=== PATIENT | male | born 1935 | race Caucasian/White ===

== ENCOUNTER 2017-08-13 19:58 | Inpatient (IN) | payer MEDICARE, BC ==
[~2017-08-13] VITALS: Ht 172.7 cm; Wt 81.6 kg
[2017-08-13 20:20] VITALS: BP 124/42
[2017-08-13] MEDS ORDERED: Thiamine HCl 100 MG in D5W 55 ML IVPB ONE (20:30)
--- NOTE | 2017-08-13 20:31 | Emergency Room Report ---
History of Present Illness General Chief Complaint: Behavioral Complaint Source: Patient, Medical Record Present Illness HPI The patient is 81-year-old male brought in by EMS after increased agitation and aggressive behavior at his group home. The patient prior history dementia. The patient is noted to be moderately confused. He reportedly had been given Ativan as well as another sedative medication prior to arrival. History is markedly limited by patient's mental status. Allergies: Coded Allergies: No Known Allergies (Unverified , 08/13/17) Patient History Reviewed Nursing Documentation: PMH: Agreed, PSxH: Agreed Nursing Documentation-PMH Hx Hypertension: Yes Review of Systems All Other Systems: limited - by mental status Physical Exam Vital Signs Date Time Temp Pulse Resp B/P (MAP) Pulse Ox O2 Delivery O2 Flow Rate FiO2 08/13/17 20:11 98.4 86 20 124/42 96 Room Air Sp02 EP Interpretation: reviewed, normal General Appearance: no apparent distress, alert, Chronically Ill Head: atraumatic Eyes: bilateral eye PERRL ENT: normal ENT inspection, hearing grossly normal, normal voice, uvula midline , dry mucus membranes Neck: normal inspection, full range of motion, supple, no bony tend Respiratory: normal inspection, lungs clear, normal breath sounds, no respiratory distress, no retraction, no wheezing Cardiovascular #1: regular rate, rhythm, no edema, systolic murmur Gastrointestinal: normal inspection, normal bowel sounds, non tender, soft, no guarding, no hernia Genitourinary: no CVA tenderness Musculoskeletal: back normal, decreased range of motion Neurologic: alert, responsive, other - incoherent speech, no focal neuro deficit noted, confabulatione Psychiatric: mood/affect normal Skin: normal inspection, normal color, no rash Medical Decision Making Diagnostic Impression: Primary Impression: Encephalopathy acute ER Course Patient presented for altered mental status and agitation. Differential diagnosis included but was not limited to ischemic stroke, subarachnoid hemorrhage, hypoglycemia, spinal cord injury, neurodegenerative disorder, urinary tract infection, hypoxemia.Because of complexity of patient's case laboratory testing and imaging studies were ordered. The patient appears to have dementia however he may have some underlying medical illness causing a change in his behavior. Patient given Haldol for agitation. A CT head read by radiology showed atrophic changes without evident intracranial hemorrhage or acute CVA. Dr. Aragon was contacted for for inpatient management Labs Test 08/13/17 21:20 White Blood Count 10.1 K/UL (4.8-10.8) Red Blood Count 4.84 M/UL (4.70-6.10) Hemoglobin 13.8 G/DL (14.2-18.0) Hematocrit 44.9 % (42.0-52.0) Mean Corpuscular Volume 93 FL (80-99) Mean Corpuscular Hemoglobin 28.6 PG (27.0-31.0) Mean Corpuscular Hemoglobin Concent 30.8 G/DL (32.0-36.0) Red Cell Distribution Width 11.6 % (11.6-14.8) Platelet Count 301 K/UL (150-450) Mean Platelet Volume 7.1 FL (6.5-10.1) Neutrophils (%) (Auto) 63.1 % (45.0-75.0) Lymphocytes (%) (Auto) 21.7 % (20.0-45.0) Monocytes (%) (Auto) 9.5 % (1.0-10.0) Eosinophils (%) (Auto) 4.7 % (0.0-3.0) Basophils (%) (Auto) 1.0 % (0.0-2.0) Sodium Level 143 MMOL/L (136-145) Potassium Level 3.8 MMOL/L (3.5-5.1) Chloride Level 109 MMOL/L (98-107) Carbon Dioxide Level 27 MMOL/L (21-32) Anion Gap 7 mmol/L (5-15) Blood Urea Nitrogen 15 mg/dL (7-18) Creatinine 0.8 MG/DL (0.55-1.30) Estimat Glomerular Filtration Rate mL/min (>60) Glucose Level 103 MG/DL (74-106) Calcium Level 9.5 MG/DL (8.5-10.1) Total Bilirubin 0.3 MG/DL (0.2-1.0) Aspartate Amino Transf (AST/SGOT) 20 U/L (15-37) Alanine Aminotransferase (ALT/SGPT) 26 U/L (12-78) Alkaline Phosphatase 90 U/L (46-116) Ammonia 4 umol/L (11-32) Troponin I 0.000 ng/mL (0.000-0.056) Total Protein 7.1 G/DL (6.4-8.2) Albumin 3.2 G/DL (3.4-5.0) Globulin 3.9 g/dL Albumin/Globulin Ratio 0.8 (1.0-2.7) Thyroid Stimulating Hormone (TSH) 1.314 uiU/mL (0.358-3.740) Last Vital Signs Date Time Temp Pulse Resp B/P (MAP) Pulse Ox O2 Delivery O2 Flow Rate FiO2 08/13/17 20:11 98.4 86 20 124/42 96 Room Air Status: unchanged Disposition: ADMITTED INPATIENT Condition: Serious Solo Can Aug 13, 2017 20:31
[2017-08-13] MEDS ORDERED: Thiamine HCl 100mg/ml 2 ml Inj ONE (20:48)
[2017-08-13 21:53] LABS: EOSINOPHILS % (AUTO) 4.7 % (0.0-3.0); LYMPHOCYTES % (AUTO) 21.7 % (20.0-45.0); MEAN CORPUSCULAR HEMOGLOBIN 28.6 PG (27.0-31.0); MEAN CORPUSCULAR HGB CONC 30.8 G/DL (32.0-36.0); MEAN CORPUSCULAR VOLUME 93 FL (80-99); MEAN PLATELET VOLUME 7.1 FL (6.5-10.1); MONOCYTES % (AUTO) 9.5 % (1.0-10.0); NEUTROPHILS % (AUTO) 63.1 % (45.0-75.0); PLATELET COUNT 301 K/UL (150-450); RED BLOOD COUNT 4.84 M/UL (4.70-6.10); RED CELL DISTRIBUTION WIDTH 11.6 % (11.6-14.8); WHITE BLOOD COUNT 10.1 K/UL (4.8-10.8)
[2017-08-13 22:00] VITALS: BP 127/54
[2017-08-13 22:06] LABS: ANION GAP 7 mmol/L (5-15); CALCIUM 9.5 MG/DL (8.5-10.1); CARBON DIOXIDE 27 MMOL/L (21-32); CHLORIDE 109 MMOL/L (98-107); CREATININE 0.8 MG/DL (0.55-1.30); POTASSIUM 3.8 MMOL/L (3.5-5.1); SODIUM 143 MMOL/L (136-145)
[2017-08-13 22:09] LABS: AMMONIA 4 umol/L (11-32)
[2017-08-13 22:12] LABS: ALANINE AMINOTRANSFERASE 26 U/L (12-78); ALBUMIN/GLOBULIN RATIO 0.8 (1.0-2.7); ASPARTATE AMINO TRANSFERASE 20 U/L (15-37); THYROID STIMULATING HORMONE 1.314 uiU/mL (0.358-3.740); TOTAL PROTEIN 7.1 G/DL (6.4-8.2)
[2017-08-13] MEDS ORDERED: Haloperidol 5mg/ml Inj IM ONE (22:30)
[2017-08-14] VITALS (7 sets, daily range): BP systolic 117–147; BP diastolic 50–95
[2017-08-14] MEDS ORDERED: Thiamine HCl 100 MG, Folic Acid 1 MG, Magnesium Sulfate 2,000 MG, Multivitamin - 12 Inj... IV SCH ×10 (01:45→08:00)
[2017-08-14] MEDS ORDERED: Haloperidol Lactate 5 MG in D5W 55 ML IVPB PRN (01:45)
[2017-08-14] MEDS ORDERED: TAMSULOSIN HCL0.4 MG ORAL (02:02)
[2017-08-14] MEDS ORDERED: DONEPEZIL HCL10 MG ORAL (02:02)
[2017-08-14] MEDS ORDERED: CATAPRES0.1 MG ORAL (02:02)
[2017-08-14] MEDS ORDERED: ARTIFICIAL TEA1 EAC2 BOTH EYES (02:02)
[2017-08-14] MEDS ORDERED: PENTOXIFYLLINE400 MG ORAL (02:02)
[2017-08-14] MEDS ORDERED: SIMVASTATIN20 MG ORAL (02:02)
[2017-08-14] MEDS ORDERED: ATENOLOL25 MG ORAL (02:02)
[2017-08-14] MEDS ORDERED: LISINOPRIL20 MG ORAL (02:02)
[2017-08-14] MEDS ORDERED: NAMENDA10 MG ORAL (02:02)
[2017-08-14] MEDS ORDERED: DEPAKOTE SPRIN125 MG PO (03:23)
[2017-08-14] MEDS ORDERED: CELEXA20 MG ORAL (03:23)
[2017-08-14] MEDS ORDERED: MULTIVITAMINS1 EAC2 ORAL (03:23)
[2017-08-14] MEDS ORDERED: LORAZEPAM0.5 MG ORAL (03:23)
[2017-08-14] MEDS: D5 1/2NS 1,000 ML IV SCH ×2 (04:14→18:00)
[2017-08-14] MEDS ORDERED: Thiamine 100mg in D5W 55ml IVPB SCH (08:00)
[2017-08-14] MEDS ORDERED: Folic Acid 1 MG, Magnesium Sulfate 2,000 MG, Multivitamin - 12 Injection 10 ML in NS w/... IV SCH (08:00)
[2017-08-14] MEDS: LORazepam 0.5mg tab ORAL PRN (08:51)
[2017-08-14] MEDS: Citalopram 20mg Tab ORAL SCH (08:52)
[2017-08-14] MEDS: Depakote 125mg Sprinkles ORAL SCH ×2 (08:52→18:00)
[2017-08-14] MEDS: Artificial Tears 1.4% Op Soln BOTH EYES SCH (08:54)
[2017-08-14] MEDS: Memantine 10mg tab ORAL SCH ×2 (09:00→21:41)
[2017-08-14] MEDS: Lisinopril 20mg tab ORAL SCH (09:00)
[2017-08-14] MEDS: Heparin 5000 units/ml inj SUBQ SCH ×2 (09:02→21:41)
[2017-08-14] MEDS: Atenolol 25mg tab ORAL SCH (09:03)
--- NOTE | 2017-08-14 12:11 | History and Physical ---
History of Present Illness General Date patient seen: Aug 14, 2017 Time patient seen: 20:34 Reason for Hospitalization: AMS, agitation Present Illness HPI 81y/o male with pmh of HTN, depression, dementia, HLD, BPH who presents with AMS. History limited as pt w/ dementia. Pt noted to be increasingly agitated w/ aggressive behavior at the [facility]. Pt noted to be seeing/hearing things and more confused compared to baseline. No reports of f/c, n/v, d/c, chest pain , SOB, abd pain. Allergies: Coded Allergies: No Known Allergies (Unverified , 08/13/17) Medication History Scheduled Atenolol* (Tenormin*), 25 MG ORAL DAILY, (Reported) Citalopram Hydrobromide* (Celexa*), 20 MG ORAL DAILY, (Reported) Dextran 70/Hypromellose (Artificial Tears), 2 DROP BOTH EYES DAILY, (Reported) Divalproex Sodium (Depakote Sprinkle), 250 MG PO BID, (Reported) Donepezil Hcl* (Donepezil Hcl*), 10 MG ORAL QHS, (Reported) Lisinopril (Lisinopril*), 20 MG ORAL DAILY, (Reported) Memantine Hcl* (Namenda*), 25 MG ORAL QHS, (Reported) Multivitamins* (Multivitamins*), 1 TAB ORAL DAILY, (Reported) Pentoxifylline* (Trental*), 400 MG ORAL DAILY, (Reported) Simvastatin (Zocor), 20 MG ORAL BEDTIME, (Reported) Tamsulosin Hcl (Tamsulosin Hcl*), 0.4 MG ORAL BEDTIME, (Reported) Scheduled PRN Clonidine Hcl* (Catapres*), 0.1 MG ORAL EVERY 12 HOURS PRN for For High Blood Pressure, (Reported) Lorazepam* (Lorazepam*), 0.5 MG ORAL Q6HR PRN for For Anxiety, (Reported) Patient History History Provided By: Patient, Medical Record, PMD Healthcare decision maker John Kwon Resuscitation status Advanced Directive on File Past Medical/Surgical History Past Medical/Surgical History: (1) HTN (hypertension) (2) HLD (hyperlipidemia) (3) BPH (benign prostatic hyperplasia) (4) Dementia (5) Depression Social History Social History: (1) lives at [facility] Review of Systems ROS Narrative Unable to obtain as pt altered Physical Exam Physical Exam Narrative General: alert, no distress, appears stated age, agitted Head: normocephalic, without obvious abnormality, atraumatic Eyes: conjunctivae/corneas clear. PERRL, EOM's intact Throat: lips, mucosa, and tongue normal. MMM Neck: supple, symmetrical, trachea midline, and no JVD Lungs: clear to auscultation bilaterally Heart: regular rate and rhythm, S1, S2 normal, no murmur, click, rub or gallop Abdomen: soft, non-tender, non-distended, bowel sounds normal; no masses or organomegaly Extremities: extremities normal, atraumatic, no cyanosis or edema Pulses: 2+ and symmetric Skin: skin color, texture, turgor normal; no rashes or lesions Neurologic: grossly normal, no focal deficits Last 24 Hour Vital Signs Date Time Temp Pulse Resp B/P (MAP) Pulse Ox O2 Delivery O2 Flow Rate FiO2 08/14/17 09:03 78 134/65 08/14/17 09:00 134/65 08/14/17 08:51 134/65 08/14/17 08:00 98.1 71 18 147/95 91 08/14/17 04:00 97.5 78 20 134/65 96 Room Air 08/14/17 04:00 Room Air 08/14/17 02:40 98.4 72 20 117/79 95 Room Air 08/14/17 01:25 72 20 117/79 95 Room Air 08/14/17 00:00 82 18 118/62 99 Room Air 08/13/17 22:00 79 19 127/54 95 Room Air 08/13/17 20:20 98.4 20 124/42 96 Room Air 08/13/17 20:11 98.4 86 20 124/42 96 Room Air Intake and Output 08/14/17 08/15/17 19:00 07:00 Intake Total 150 ml Balance 150 ml IV Total 150 ml Laboratory Tests Test 08/13/17 21:20 08/14/17 06:10 White Blood Count 10.1 K/UL (4.8-10.8) Red Blood Count 4.84 M/UL (4.70-6.10) Hemoglobin 13.8 G/DL (14.2-18.0) L Hematocrit 44.9 % (42.0-52.0) Mean Corpuscular Volume 93 FL (80-99) Mean Corpuscular Hemoglobin 28.6 PG (27.0-31.0) Mean Corpuscular Hemoglobin Concent 30.8 G/DL (32.0-36.0) L Red Cell Distribution Width 11.6 % (11.6-14.8) Platelet Count 301 K/UL (150-450) Mean Platelet Volume 7.1 FL (6.5-10.1) Neutrophils (%) (Auto) 63.1 % (45.0-75.0) Lymphocytes (%) (Auto) 21.7 % (20.0-45.0) Monocytes (%) (Auto) 9.5 % (1.0-10.0) Eosinophils (%) (Auto) 4.7 % (0.0-3.0) H Basophils (%) (Auto) 1.0 % (0.0-2.0) Sodium Level 143 MMOL/L (136-145) Potassium Level 3.8 MMOL/L (3.5-5.1) Chloride Level 109 MMOL/L (98-107) H Carbon Dioxide Level 27 MMOL/L (21-32) Anion Gap 7 mmol/L (5-15) Blood Urea Nitrogen 15 mg/dL (7-18) Creatinine 0.8 MG/DL (0.55-1.30) Estimat Glomerular Filtration Rate mL/min (>60) Glucose Level 103 MG/DL (74-106) Calcium Level 9.5 MG/DL (8.5-10.1) Total Bilirubin 0.3 MG/DL (0.2-1.0) Aspartate Amino Transf (AST/SGOT) 20 U/L (15-37) Alanine Aminotransferase (ALT/SGPT) 26 U/L (12-78) Alkaline Phosphatase 90 U/L (46-116) Ammonia 4 umol/L (11-32) L Troponin I 0.000 ng/mL (0.000-0.056) Total Protein 7.1 G/DL (6.4-8.2) Albumin 3.2 G/DL (3.4-5.0) L Globulin 3.9 g/dL Albumin/Globulin Ratio 0.8 (1.0-2.7) L Thyroid Stimulating Hormone (TSH) 1.314 uiU/mL (0.358-3.740) Vitamin B12 Level 661 PG/ML (193-986) Vitamin D 25-Hydroxy Pending 25-Hydroxy Vitamin D2 Pending 25-Hydroxy Vitamin D3 Pending Folate 28.0 NG/ML (8.6-58.9) Rapid Plasma Reagin Pending Height (Feet): 5 Height (Inches): 8.00 Weight (Pounds): 180 Medications Current Medications Medications (Trade) Dose Ordered Sig/Hunter Route PRN Reason Start Time Stop Time Status Last Admin Dose Admin Acetaminophen (Tylenol) 650 mg Q4H PRN ORAL Mild Pain (Pain Scale 1-3) 08/14/17 01:45 09/13/17 01:44 Artificial Tears (Akwa-Tears) 2 drop DAILY BOTH EYES 08/14/17 09:00 09/13/17 08:59 08/14/17 08:54 Atenolol (Tenormin) 25 mg DAILY ORAL 08/14/17 09:00 09/13/17 08:59 08/14/17 09:03 Atorvastatin Calcium (Lipitor) 10 mg BEDTIME ORAL 08/14/17 21:00 09/13/17 20:59 Citalopram Hydrobromide (celeXA) 20 mg DAILY ORAL 08/14/17 09:00 09/13/17 08:59 08/14/17 08:52 Clonidine HCl (Catapres) 0.1 mg Q12H PRN ORAL For SBP>160 08/14/17 05:15 09/13/17 05:14 Dextrose (Dextrose 50%) STAT PRN IV Hypoglycemia 08/14/17 01:45 09/13/17 01:44 Dextrose/Sodium Chloride 1,000 ml @ 75 mls/hr [id number] IV 08/14/17 02:39 09/13/17 02:38 08/14/17 04:14 Divalproex Sodium (Depakote Sprinkles) 250 mg BID ORAL 08/14/17 09:00 09/13/17 08:59 08/14/17 08:52 Donepezil HCl (Aricept) 10 mg QHS ORAL 08/14/17 21:00 09/13/17 20:59 Folic Acid 1 mg/ Magnesium Sulfate 2000 mg/ Multivitamins 10 ml/Sodium Chloride 1,014.2 ml @ 125 mls/ hr Q24H IV 08/14/17 08:00 09/13/17 07:59 08/14/17 09:54 Haloperidol Lactate 5 mg/ Dextrose 56 ml @ 224 mls/hr Q8H PRN IVPB agitation 08/14/17 01:45 09/13/17 01:44 Heparin Sodium (Porcine) (Heparin 5000 units/ml) 5,000 units EVERY 12 HOURS SUBQ 08/14/17 09:00 09/13/17 08:59 08/14/17 09:02 Lisinopril (Prinivil) 20 mg DAILY ORAL 08/14/17 09:00 09/13/17 08:59 08/14/17 09:00 Lorazepam (Ativan) 0.5 mg Q6H PRN ORAL For Anxiety 08/14/17 04:00 08/21/17 03:59 08/14/17 08:51 Memantine (Namenda) 10 mg Q12HR ORAL 08/14/17 09:00 09/13/17 08:59 08/14/17 09:00 Ondansetron HCl (Zofran) 4 mg Q6H PRN IVP Nausea & Vomiting 08/14/17 01:45 09/13/17 01:44 Pentoxifylline (TRENtal) 400 mg DAILY ORAL 08/14/17 09:00 09/13/17 08:59 08/14/17 08:51 Tamsulosin HCl (Flomax) 0.4 mg BEDTIME ORAL 08/14/17 21:00 09/13/17 20:59 Thiamine HCl 100 mg/Dextrose 56 ml @ 112 mls/hr Q24H IVPB 08/14/17 08:00 09/13/17 07:59 08/14/17 09:53 Assessment/Plan Problem List: (1) Acute encephalopathy ICD Codes: G93.40 - Encephalopathy, unspecified SNOMED: 5168741 (2) HTN (hypertension) ICD Codes: I10 - Essential (primary) hypertension SNOMED: 07226363 (3) HLD (hyperlipidemia) ICD Codes: E78.5 - Hyperlipidemia, unspecified SNOMED: 14963574 (4) BPH (benign prostatic hyperplasia) ICD Codes: N40.0 - Benign prostatic hyperplasia without lower urinary tract symptoms SNOMED: 880394922 (5) Dementia ICD Codes: F03.90 - Unspecified dementia without behavioral disturbance SNOMED: 19118701 (6) Depression ICD Codes: F32.9 - Major depressive disorder, single episode, unspecified SNOMED: 82140563 Status: stable Assessment/Plan Admit inpt Check fo metabolic causes of encephalopathy--B12, folate, TSH, RPR, U/A Psych consulted Monitor neuro and mental status closely Haldol PRN agitation Cont SNF meds Pain control, supportive care, bowel regimen Swallow eval PT/OT eval DVT Prophylaxis: SCD, HSQ Code Status: DNR/DNI per [facility] Classification Declaration: Based on this initial evaluation, and depending on the patient's clinical course, I anticipate that this patient will require hospitalization for 2-3 days for encephalopathy and close respiratory/ hemodynamic monitoring. Disposition: Once the patient is stable to leave the hospital, I anticipate the patient will likely be discharged to the following environment: back to SNF I spent 70 minutes on this patient's case, and 36 minutes were dedicated to counseling and/or care coordination. Discussed with patient/family, nursing staff, SW/CM, regarding clinical status, treatment course, and disposition planning. Time of note may not reflect time of encounter. Flor Rivera M.D. Aug 14, 2017 12:11
--- NOTE | 2017-08-14 18:14 | Cardiology Report ---
APPROVED REPORT EKG Measurement Heart [id number] ID [id number] Normal sinus rhythm Normal ECG
[2017-08-14] MEDS: Tamsulosin 0.4mg cap ORAL SCH (21:40)
[2017-08-14] MEDS: Donepezil 10mg tab ORAL SCH (21:40)
--- NOTE | 2017-08-14 23:23 | Consultation ---
History of Present Illness General Chief Complaint: Behavioral Complaint Present Illness HPI 81y/o male with pmh of HTN, depression, dementia, HLD, BPH who presents with AMS. the pt is confused and agitated Allergies: Coded Allergies: No Known Allergies (Unverified , 08/13/17) Medication History Scheduled Atenolol* (Tenormin*), 25 MG ORAL DAILY, (Reported) Citalopram Hydrobromide* (Celexa*), 20 MG ORAL DAILY, (Reported) Dextran 70/Hypromellose (Artificial Tears), 2 DROP BOTH EYES DAILY, (Reported) Divalproex Sodium (Depakote Sprinkle), 250 MG PO BID, (Reported) Donepezil Hcl* (Donepezil Hcl*), 10 MG ORAL QHS, (Reported) Lisinopril (Lisinopril*), 20 MG ORAL DAILY, (Reported) Memantine Hcl* (Namenda*), 25 MG ORAL QHS, (Reported) Multivitamins* (Multivitamins*), 1 TAB ORAL DAILY, (Reported) Pentoxifylline* (Trental*), 400 MG ORAL DAILY, (Reported) Simvastatin (Zocor), 20 MG ORAL BEDTIME, (Reported) Tamsulosin Hcl (Tamsulosin Hcl*), 0.4 MG ORAL BEDTIME, (Reported) Scheduled PRN Clonidine Hcl* (Catapres*), 0.1 MG ORAL EVERY 12 HOURS PRN for For High Blood Pressure, (Reported) Lorazepam* (Lorazepam*), 0.5 MG ORAL Q6HR PRN for For Anxiety, (Reported) Patient History Healthcare decision maker John Kwon Resuscitation status Advanced Directive on File Physical Exam Last 24 Hour Vital Signs Date Time Temp Pulse Resp B/P (MAP) Pulse Ox O2 Delivery O2 Flow Rate FiO2 08/14/17 20:00 97.5 60 21 120/50 98 Room Air 08/14/17 16:15 97.4 60 19 123/59 96 Room Air 08/14/17 12:00 98.0 76 18 144/89 90 08/14/17 09:03 78 134/65 08/14/17 09:00 134/65 08/14/17 08:51 134/65 08/14/17 08:00 98.1 71 18 147/95 91 08/14/17 04:00 97.5 78 20 134/65 96 Room Air 08/14/17 04:00 Room Air 08/14/17 02:40 98.4 72 20 117/79 95 Room Air 08/14/17 01:25 72 20 117/79 95 Room Air 08/14/17 00:00 82 18 118/62 99 Room Air Intake and Output 08/14/17 08/15/17 19:00 07:00 Intake Total 1501 ml 225 ml Balance 1501 ml 225 ml Intake Oral 200 ml IV Total 1301 ml 225 ml # Voids 3 Laboratory Tests Test 08/14/17 06:10 Vitamin B12 Level 661 PG/ML (193-986) Vitamin D 25-Hydroxy Pending 25-Hydroxy Vitamin D2 Pending 25-Hydroxy Vitamin D3 Pending Folate 28.0 NG/ML (8.6-58.9) Rapid Plasma Reagin Pending Height (Feet): 5 Height (Inches): 8.00 Weight (Pounds): 180 Medications Current Medications Medications (Trade) Dose Ordered Sig/Hunter Route PRN Reason Start Time Stop Time Status Last Admin Dose Admin Acetaminophen (Tylenol) 650 mg Q4H PRN ORAL Mild Pain (Pain Scale 1-3) 08/14/17 01:45 09/13/17 01:44 08/14/17 13:32 Artificial Tears (Akwa-Tears) 2 drop DAILY BOTH EYES 08/14/17 09:00 09/13/17 08:59 08/14/17 08:54 Atenolol (Tenormin) 25 mg DAILY ORAL 08/14/17 09:00 09/13/17 08:59 08/14/17 09:03 Atorvastatin Calcium (Lipitor) 10 mg BEDTIME ORAL 08/14/17 21:00 09/13/17 20:59 08/14/17 21:41 Citalopram Hydrobromide (celeXA) 20 mg DAILY ORAL 08/14/17 09:00 09/13/17 08:59 08/14/17 08:52 Clonidine HCl (Catapres) 0.1 mg Q12H PRN ORAL For SBP>160 08/14/17 05:15 09/13/17 05:14 Dextrose (Dextrose 50%) STAT PRN IV Hypoglycemia 08/14/17 01:45 09/13/17 01:44 Dextrose/Sodium Chloride 1,000 ml @ 75 mls/hr [id number] IV 08/14/17 02:39 09/13/17 02:38 08/14/17 18:00 Divalproex Sodium (Depakote Sprinkles) 250 mg BID ORAL 08/14/17 09:00 09/13/17 08:59 08/14/17 18:00 Donepezil HCl (Aricept) 10 mg QHS ORAL 08/14/17 21:00 09/13/17 20:59 08/14/17 21:40 Folic Acid 1 mg/ Magnesium Sulfate 2000 mg/ Multivitamins 10 ml/Sodium Chloride 1,014.2 ml @ 125 mls/ hr Q24H IV 08/14/17 08:00 09/13/17 07:59 08/14/17 09:54 Haloperidol Lactate 5 mg/ Dextrose 56 ml @ 224 mls/hr Q8H PRN IVPB agitation 08/14/17 01:45 09/13/17 01:44 Heparin Sodium (Porcine) (Heparin 5000 units/ml) 5,000 units EVERY 12 HOURS SUBQ 08/14/17 09:00 09/13/17 08:59 08/14/17 21:41 Lisinopril (Prinivil) 20 mg DAILY ORAL 08/14/17 09:00 09/13/17 08:59 08/14/17 09:00 Lorazepam (Ativan) 0.5 mg Q6H PRN ORAL For Anxiety 08/14/17 04:00 08/21/17 03:59 08/14/17 08:51 Memantine (Namenda) 10 mg Q12HR ORAL 08/14/17 09:00 09/13/17 08:59 08/14/17 21:41 Ondansetron HCl (Zofran) 4 mg Q6H PRN IVP Nausea & Vomiting 08/14/17 01:45 09/13/17 01:44 Pentoxifylline (TRENtal) 400 mg DAILY ORAL 08/14/17 09:00 09/13/17 08:59 08/14/17 08:51 Tamsulosin HCl (Flomax) 0.4 mg BEDTIME ORAL 08/14/17 21:00 09/13/17 20:59 08/14/17 21:40 Thiamine HCl 100 mg/Dextrose 56 ml @ 112 mls/hr Q24H IVPB 08/14/17 08:00 09/13/17 07:59 08/14/17 09:53 Jose Brooke M.D. Aug 14, 2017 23:23
[2017-08-15] VITALS: BP 126/63
[2017-08-15 02:57] LABS: APPEARANCE,URINE CLEAR; KETONES,URINE 1+ (NEGATIVE); LEUKOCYTE ESTERASE ,URINE 2+ (NEGATIVE); NITRITE,URINE POSITIVE (NEGATIVE); PH,URINE 6 (4.5-8.0); PROTEIN,URINE NEGATIVE (NEGATIVE); UROBILINOGEN,URINE NORMAL MG/DL (0.0-1.0)
[2017-08-15 03:25] LABS: RBC,URINE 0-2 /HPF (0 - 0); WBC,URINE 40-60 /HPF (0 - 0)
[2017-08-15 03:26] LABS: BACTERIA,URINE FEW /HPF; SQUAMOUS EPITHELIAL CELL,UR FEW /LPF (NONE/OCC)
[2017-08-15 04:00] VITALS: BP 147/74
[2017-08-15] MEDS: D5 1/2NS 1,000 ML IV SCH ×2 (05:30→18:39)
[2017-08-15 06:58] LABS: BASOPHILS % (AUTO) 0.6 % (0.0-2.0); EOSINOPHILS % (AUTO) 6.4 % (0.0-3.0); LYMPHOCYTES % (AUTO) 31.9 % (20.0-45.0); MEAN CORPUSCULAR HEMOGLOBIN 30.3 PG (27.0-31.0); MEAN CORPUSCULAR HGB CONC 32.4 G/DL (32.0-36.0); MEAN CORPUSCULAR VOLUME 94 FL (80-99); MEAN PLATELET VOLUME 7.9 FL (6.5-10.1); NEUTROPHILS % (AUTO) 47.1 % (45.0-75.0); PLATELET COUNT 252 K/UL (150-450); RED CELL DISTRIBUTION WIDTH 12.3 % (11.6-14.8); WHITE BLOOD COUNT 7.1 K/UL (4.8-10.8)
[2017-08-15 07:23] LABS: ANION GAP 6 mmol/L (5-15); CALCIUM 9.2 MG/DL (8.5-10.1); CARBON DIOXIDE 26 MMOL/L (21-32); CHLORIDE 109 MMOL/L (98-107); CREATININE 0.7 MG/DL (0.55-1.30); MAGNESIUM 2.3 MG/DL (1.8-2.4); POTASSIUM 3.7 MMOL/L (3.5-5.1); SODIUM 141 MMOL/L (136-145)
[2017-08-15 08:29] VITALS: BP 139/71
[2017-08-15] MEDS: Lisinopril 20mg tab ORAL SCH (09:00)
[2017-08-15] MEDS: Atenolol 25mg tab ORAL SCH (09:00)
--- NOTE | 2017-08-15 09:28 | Diagnostic Imaging Report ---
Indications: Confusion Technique: Spiral acquisitions obtained through the brain. Angled axial and coronal 5 x 5 mm slices were reconstructed. Total dose length product 1449.98 mGycm. CTDI vol(s) 70.38 mGy. Dose reduction achieved using automated exposure control Comparison: None. Findings: There is marked prominence to the ventricles and extra-axial CSF spaces, the former somewhat out of proportion. 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 No acute intracranial hemorrhage or edema. No mass effect or midline shift. Normal anglin-white differentiation otherwise. Intact calvarium. Impression: Chronic age-related changes, as described Ventriculomegaly, probably secondary to central volume loss, but component of normal pressure hydrocephalus is not excluded Negative for acute intracranial bleed or mass effect The CT scanner at [facility] is accredited by the [employer] and the scans are performed using protocols designed to limit radiation exposure to as low as reasonably achievable to attain images of sufficient resolution adequate for diagnostic evaluation.
[2017-08-15] MEDS: Citalopram 20mg Tab ORAL SCH (10:01)
[2017-08-15] MEDS: Depakote 125mg Sprinkles ORAL SCH ×2 (10:01→17:29)
[2017-08-15] MEDS: Artificial Tears 1.4% Op Soln BOTH EYES SCH (10:01)
[2017-08-15] MEDS: Memantine 10mg tab ORAL SCH ×2 (10:01→22:37)
[2017-08-15] MEDS: Heparin 5000 units/ml inj SUBQ SCH ×2 (10:03→22:39)
[2017-08-15] MEDS: Folic Acid 1 MG, Magnesium Sulfate 2,000 MG, Multivitamin - 12 Injection 10 ML in NS w/... IV SCH (10:59)
[2017-08-15] MEDS: Thiamine 100mg in D5W 55ml IVPB SCH (10:59)
[2017-08-15 11:55] VITALS: BP 114/67
[2017-08-15] MEDS ORDERED: D5 1/2NS 1000ml IV ONE (14:48)
[2017-08-15 15:11] VITALS: BP 114/57
[2017-08-15] MEDS: LORazepam 0.5mg tab ORAL PRN (17:29)
[2017-08-15] MEDS ORDERED: cefTRIAXone 1 GM in D5W 55 ML IVPB ONE (17:30)
--- NOTE | 2017-08-15 17:57 | General Progress Note ---
Assessment/Plan Problem List: (1) Encephalopathy acute ICD Codes: G93.40 - Encephalopathy, unspecified SNOMED: 2209977 (2) UTI (urinary tract infection) ICD Codes: N39.0 - Urinary tract infection, site not specified SNOMED: 61021621 (3) Cerebral ventriculomegaly ICD Codes: G93.89 - Other specified disorders of brain SNOMED: 012935376 (4) Dementia ICD Codes: F03.90 - Unspecified dementia without behavioral disturbance SNOMED: 77448205 (5) Depression ICD Codes: F32.9 - Major depressive disorder, single episode, unspecified SNOMED: 84867064 (6) HTN (hypertension) ICD Codes: I10 - Essential (primary) hypertension SNOMED: 38582375 (7) HLD (hyperlipidemia) ICD Codes: E78.5 - Hyperlipidemia, unspecified SNOMED: 92017307 (8) BPH (benign prostatic hyperplasia) ICD Codes: N40.0 - Benign prostatic hyperplasia without lower urinary tract symptoms SNOMED: 069128619 (9) lives at snf Status: progressing Assessment/Plan Acute metabolic encephalopathy likely 2/2 UTI IV ceftriaxone f/u urine cx TSH, B12, folate, RPR, vitamin D, unremarkable Psych consulted. Appreciate recs CT brain reviewed with ventriculomegaly Neurology consulted to r/o NPH given altered mental status, incontinence, and gait imbalance. Monitor neuro and mental status closely Haldol PRN agitation Cont SNF meds Pain control, supportive care, bowel regimen Swallow eval PT/OT eval DVT Prophylaxis: SCD, HSQ Code Status: DNR/DNI per [facility] Classification Declaration: Based on this initial evaluation, and depending on the patient's clinical course, I anticipate that this patient will require hospitalization for 2-3 days for encephalopathy and close respiratory/ hemodynamic monitoring. Disposition: Once the patient is stable to leave the hospital, I anticipate the patient will likely be discharged to the following environment: back to SNF I spent 70 minutes on this patient's case, and 36 minutes were dedicated to counseling and/or care coordination. Discussed with patient/family, nursing staff, SW/CM, regarding clinical status, treatment course, and disposition planning. Time of note may not reflect time of encounter. Subjective Date patient seen: Aug 15, 2017 Allergies: Coded Allergies: No Known Allergies (Unverified , 08/13/17) Subjective - patient is more improved today, less agitated. still with intermittent confusion - CT brain showed ventriculomegaly - UA showing UTI Objective Last 24 Hour Vital Signs Date Time Temp Pulse Resp B/P (MAP) Pulse Ox O2 Delivery O2 Flow Rate FiO2 08/15/17 15:11 98.7 61 20 114/57 98 08/15/17 11:55 96.6 67 20 114/67 100 08/15/17 10:02 139/71 08/15/17 09:00 139/71 08/15/17 09:00 54 139/71 08/15/17 08:29 97.8 54 20 139/71 99 08/15/17 04:00 Room Air 08/15/17 04:00 97.0 56 21 147/74 97 08/15/17 00:00 97.7 60 19 126/63 98 Room Air 08/14/17 20:00 97.5 60 21 120/50 98 Room Air Intake and Output 08/14/17 08/15/17 19:00 07:00 Intake Total 1501 ml 1000 ml Output Total 500 ml Balance 1501 ml 500 ml Intake Oral 200 ml 100 ml IV Total 1301 ml 900 ml Output Urine Total 500 ml # Voids 3 Laboratory Tests 08/15/17 01:20: Urine Color Yellow, Urine Appearance Clear, Urine pH 6, Urine Specific Accident 1.020, Urine Protein Negative, Urine Glucose (UA) Negative, Urine Ketones 1+H, Urine Occult Blood Negative, Urine Nitrite PositiveH, Urine Bilirubin Negative, Urine Urobilinogen Normal, Urine Leukocyte Esterase 2+H, Urine RBC 0-2H, Urine WBC 40-60H, Urine Squamous Epithelial Cells Few, Urine Bacteria Few 08/15/17 04:50: White Blood Count 7.1, Red Blood Count 4.20L, Hemoglobin 12.7L, Hematocrit 39.3L , Mean Corpuscular Volume 94, Mean Corpuscular Hemoglobin 30.3, Mean Corpuscular Hemoglobin Concent 32.4, Red Cell Distribution Width 12.3, Platelet Count 252, Mean Platelet Volume 7.9, Neutrophils (%) (Auto) 47.1, Lymphocytes (% ) (Auto) 31.9, Monocytes (%) (Auto) 14.0H, Eosinophils (%) (Auto) 6.4H, Basophils (%) (Auto) 0.6, Sodium Level 141, Potassium Level 3.7, Chloride Level 109H, Carbon Dioxide Level 26, Anion Gap 6, Blood Urea Nitrogen 9, Creatinine 0.7, Estimat Glomerular Filtration Rate , Glucose Level 110H, Calcium Level 9.2 , Magnesium Level 2.3 Height (Feet): 5 Height (Inches): 8.00 Weight (Pounds): 180 General Appearance: no apparent distress, alert EENT: PERRL/EOMI Neck: non-tender, normal alignment, supple Cardiovascular: normal peripheral pulses, normal rate, regular rhythm Respiratory/Chest: chest wall non-tender, lungs clear, no respiratory distress Abdomen: normal bowel sounds, non tender, soft Genitourinary/Rectal: other - condom cath, incontinent Neurologic: manager mental health II-XII grossly normal, no motor/sensory deficits, alert Hayley Manriquez N.P. Aug 15, 2017 17:57
--- NOTE | 2017-08-15 18:36 | Consultation ---
Consult Note Consult Note NEUROLOGY CONSULTATION: Full note dictated #[id number] 81 y/o, RH, CM with PH of HTN, DL, BPH, depression, and dementia who lives in a NH. He was [place] [facility] [place] and AMS and behavioral problems consisting of aggressiveness and auditory and visual hallucinations. ON EXAM: Not very cooperative. Oriented to self only. No focal findings. Refuses to stand and walk. CT with significant cortical and subcortical atrophy associated with hydrocephalus ex vacuo. IMPRESSION: Underling dementia with superadded encephalopathy due to UTI. 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 REC: Continue to treat UTI aggressively. Rx of behavioral problems as per Dr. Brooke. Observe. Mary Sagastume M.D., M.S.P.MARY BROCK Aug 15, 2017 18:36
[2017-08-15] MEDS ORDERED: Haloperidol 5mg/ml Inj ONE (18:54)
[2017-08-15] MEDS: Haloperidol 5mg/ml Inj IM PRN (19:04)
[2017-08-15 20:06] VITALS: BP 136/65
--- NOTE | 2017-08-15 20:45 | Progress Note ---
DATE: 08/15/2017 SUBJECTIVE: The patient is calm and cooperative. No behavior issues at this time. Not agitated. The patient was asleep and arousable. Compliant with medication. MENTAL STATUS EXAMINATION: The patient is alert and oriented to self. Mood is neutral. Affect is blunted. Congruent with mood. Thought process is concrete. Thought content, no suicidal or homicidal ideations. ASSESSMENT: 1. Dementia. 2. Agitation. 3. Less combative. PLAN: 1. We will continue lorazepam as needed, Depakote 250 mg b.i.d. and citalopram 20 mg. 2. We will continue to follow and readjust the medications. Jose Brooke M.D. DR: AFSHAN JOB#: [id number] CC:
[2017-08-15] MEDS: Donepezil 10mg tab ORAL SCH (22:37)
[2017-08-15] MEDS: Tamsulosin 0.4mg cap ORAL SCH (22:37)
--- NOTE | 2017-08-15 22:45 | Consultation ---
DATE OF CONSULTATION: 08/15/2017 NEUROLOGY CONSULTATION CONSULTING PHYSICIAN: David Sagastume M.D. REQUESTING PHYSICIAN: Rayna Lopez M.D. HISTORY: Mr. Jung Escobar is an 81-year-old, right-handed, gentleman, who does have a past history of hypertension, dyslipidemia, benign prostatic hypertrophy, depression, and dementia of unknown type, who lives in a care home. He was brought into the [facility] emergency room on 08/14/2017 for an alteration in his mental state and behavioral problems consisting of aggressiveness towards his nurses and in addition, floridly hallucinating and having auditory and visual hallucinations. On being evaluated in the emergency room, he was found to have a urinary tract infection. He was treated with appropriate fluids and electrolytes and in addition given intravenous antibiotics. He also had a CT scan of the brain performed. The CT scan of the brain was read by the radiologist as showing "chronic age-related changes and in addition ventriculomegaly probably secondary to central volume loss, but a component of normal pressure hydrocephalus is not excluded." This consultation was thus requested to evaluate the patient from a neurological point of view for his altered mental state and possibly normal pressure hydrocephalus. At this point in time, the patient is still quite delirious. He is not very cooperative with his examination and is unable to give me any further history. PAST MEDICAL HISTORY: Significant for hypertension, dyslipidemia, benign prostatic hypertrophy, depression, and dementia. FAMILY HISTORY: Unavailable. PERSONAL HISTORY: Home: He lives in a care home. 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 Habits: He tells me that he used to smoke and drink in the past, but has not done so for numerous years. He denies use of any illicit drugs. MEDICATIONS: Present medications include folic acid, magnesium sulfate, multivitamins, normal saline, thiamine 100 mg, Aricept 10 mg at bedtime, Flomax, atorvastatin, heparin for DVT prophylaxis, atenolol, Celexa, Depakote sprinkles 250 mg twice a day, lisinopril, Namenda 10 mg twice a day, Trental, Artificial Tears, clonidine as needed, Ativan as needed, Tylenol as needed, Zofran as needed, and Haldol as needed. PHYSICAL EXAMINATION: GENERAL: He is a well-developed, well-nourished gentleman, lying in bed, in no acute distress. VITAL SIGNS: Pulse 61 per minute, blood pressure 114/57 mmHg, respirations 20 per minute, and temperature 98.7 degrees Fahrenheit. HEAD: Normocephalic and atraumatic. NECK: No neck rigidity was observed. EENT: Examination benign. NEUROLOGICAL EXAMINATION: MENTAL STATUS EXAMINATION: He was awake and alert, however, he was not very cooperative. He was oriented to self only and refused to answer further mental status testing questions. SPEECH: He had no dysarthria. LANGUAGE: Could not be tested adequately as he would not cooperate for formal language testing. CRANIAL NERVE EXAMINATION: II: He did blink to threat. He did not cooperate for confrontation testing. III, IV & : External ocular movements were full and the pupils 3 mm in diameter, equal, round, regular, and reactive to light. V: He had normal facial sensations, and the temporales, masseters, and pterygoids functioned normally. VII: He had normal facial expressions and no facial asymmetry. In addition, the corneal reflexes were equally brisk bilaterally. VIII: He was able to hear well and had no nystagmus. IX: The palate moved symmetrically on phonation. X: He had no hoarseness of voice. XI: The sternocleidomastoids and trapezii functioned normally. XII: The tongue was in the midline without any fasciculations or atrophy. MOTOR SYSTEM: The tone was increased in all four extremities with gegenhalten. Examination of muscle mass revealed no focal wasting. Examination of power revealed grade 5/5 power in all muscle groups tested with some give-way weakness in all four extremities. SENSORY EXAMINATION: He responded appropriately to deep pain. He was unable to cooperate for the sensory modalities. REFLEXES: 1+ and bilaterally symmetrical at the biceps, triceps, brachioradialis, and knees, 0 at both ankles. The plantar responses were flexor bilaterally. COORDINATION, STANCE & GAIT: Could not be tested. DIAGNOSTIC IMPRESSION: 1. Mr. Jung Escobar is an 81-year-old, right-handed, gentleman, who does have a past history of hypertension, dyslipidemia, benign prostatic hypertrophy, depression, and dementia, who lives in a care home and was brought from there for an alteration in mental state and significant behavioral problems consisting of aggressiveness towards his nurses and in addition, being tormented by auditory and visual hallucinations. 2. On neurological examination, at this time, he is quite uncooperative, is oriented only to self, but does not demonstrate any focal or lateralizing neurological findings. He refuses to stand and walk. 3. The CT scan of the brain without contrast was reviewed and revealed significant cortical and subcortical atrophy associated with hydrocephalus ex vacuo, no acute pathology was seen. 4. Laboratory data obtained thus far have revealed anemia with a hemoglobin of 12.7. Chemistry panel with hypoalbuminemia with an albumin of 3.2. His B12 level is normal at 661. His folate is normal at 28 and his TSH is normal at 1.31. His urinalysis however reveals 2+ leukocyte esterase, 0 to 2 red blood cells, and 40 to 60 white blood cells per high-power field. In addition, the urinalysis shows urinary bacteria. 5. The patient's history, neurological examination, imaging studies, and laboratory data are most compatible with an underlying dementia with superimposed encephalopathy related to the urinary tract infection. The imaging studies are not consistent with normal pressure hydrocephalus, but are consistent with hydrocephalus ex vacuo RECOMMENDATIONS: 1. Agree with management thus far. 2. The patient's urinary tract infection should be treated aggressively. 3. Treatment of behavioral problems as per his psychiatrist, Dr. Brooke. 4. The patient will be observed closely and depending on how he fares over the next day or so, further recommendations will be given. Thank you for entrusting me with the care Mr. Escobar. I shall follow him with you. David Sagastume M.D., M.S.P.H. DR: SUKUMAR JOB#: [id number] PRITI
[2017-08-16 00:50] VITALS: BP 121/62
[2017-08-16 04:00] VITALS: BP 124/69
[2017-08-16] MEDS: D5 1/2NS 1,000 ML IV SCH (06:25)
[2017-08-16 07:20] VITALS: BP 113/56
[2017-08-16] MEDS: Depakote 125mg Sprinkles ORAL SCH ×2 (08:48→17:35)
[2017-08-16] MEDS: Citalopram 20mg Tab ORAL SCH (08:48)
[2017-08-16] MEDS: Lisinopril 20mg tab ORAL SCH (08:48)
[2017-08-16] MEDS: Memantine 10mg tab ORAL SCH (08:48)
[2017-08-16] MEDS: Atenolol 25mg tab ORAL SCH (08:48)
[2017-08-16] MEDS: Heparin 5000 units/ml inj SUBQ SCH (08:58)
[2017-08-16] MEDS: Artificial Tears 1.4% Op Soln BOTH EYES SCH (08:59)
[2017-08-16] MEDS: LORazepam 0.5mg tab ORAL PRN (10:43)
[2017-08-16] MEDS: Haloperidol 5mg/ml Inj IM PRN (10:43)
[2017-08-16 11:12] VITALS: BP 139/77
--- NOTE | 2017-08-16 12:12 | Neurology Progress Note ---
Interim History Interim History Interim History Mr. Escobar feels better today. He is more communicative today. He however is drowsy now. He was just given Haldol and Ativan as per his sitter. He denies any new neurologic symptoms. He did take a few steps with the PT today. Review of Systems Neuro Review of Systems Benign. Objective Physical Exam Last Vital Signs Date Time Temp Pulse Resp B/P (MAP) Pulse Ox O2 Delivery O2 Flow Rate FiO2 08/16/17 11:12 97.9 18 139/77 Room Air 08/16/17 08:48 73 08/16/17 07:20 98 Neurologic Exam Objective PHYSICAL EXAMINATION: GENERAL: He is a well-developed, well-nourished gentleman, lying in bed, in no acute distress. HEAD: Normocephalic and atraumatic. NECK: No neck rigidity was observed. EENT: Examination benign. NEUROLOGICAL EXAMINATION: MENTAL STATUS EXAMINATION: He was awake but not completely alert. He was oriented to self and hospital only. He was unable to cooperate for further mental status testing. SPEECH: He had no dysarthria. LANGUAGE: Could not be tested adequately. CRANIAL NERVE EXAMINATION: II: He did blink to threat. He did not cooperate for confrontation testing. III, IV & : External ocular movements were full and the pupils 3 mm in diameter, equal, round, regular, and reactive to light. V: He had normal facial sensations, and the temporales, masseters, and pterygoids functioned normally. VII: He had normal facial expressions and no facial asymmetry. VIII: He was able to hear well and had no nystagmus. IX: The palate moved symmetrically on phonation. X: He had no hoarseness of voice. XI: The sternocleidomastoids and trapezii functioned normally. XII: The tongue was in the midline without any fasciculations or atrophy. MOTOR SYSTEM: The tone was increased in all four extremities with gegenhalten. Examination of muscle mass revealed no focal wasting. Examination of power revealed grade 5/5 power in all muscle groups tested. SENSORY EXAMINATION: He responded appropriately to light touch. He was unable to cooperate for the sensory modalities. REFLEXES: 1+ and bilaterally symmetrical at the biceps, triceps, brachioradialis, and knees, 0 at both ankles. The plantar responses were flexor bilaterally. COORDINATION, STANCE & GAIT: Could not be tested. Impression/Recommendations Diagnostic Impression 1. Mr. Jung Escobar is an 81-year-old, right-handed, gentleman, who does have a past history of hypertension, dyslipidemia, benign prostatic hypertrophy, depression, and dementia, who lives in a [facility] and was brought from there for an alteration in mental state and significant behavioral problems consisting of aggressiveness towards his nurses and in addition, being tormented by auditory and visual hallucinations. 2. He feels better today. He is more cooperative but is mildly sedated now. 3. On neurological examination, at this time, he is oriented self and hospital. He does not demonstrate any focal or lateralizing neurological findings. 4. The CT scan of the brain without contrast was reviewed and revealed significant cortical and subcortical atrophy associated with hydrocephalus ex vacuo, no acute pathology was seen. 5. Laboratory data obtained thus far have revealed anemia with a hemoglobin of 12.7. Chemistry panel with hypoalbuminemia with an albumin of 3.2. His B12 level is normal at 661. His folate is normal at 28 and his TSH is normal at 1.31. His urinalysis however reveals 2+ leukocyte esterase, 0 to 2 red blood cells, and 40 to 60 white blood cells per high-power field. In addition, the urinalysis shows urinary bacteria. 6. The patient's history, neurological examination, imaging studies, and laboratory data are most compatible with an underlying dementia with superimposed encephalopathy related to the urinary tract infection. The imaging studies are not consistent with normal pressure hydrocephalus, but are consistent with hydrocephalus ex vacuo Recommendations 1. Continue present management.. 2. Aggressive treatment of urinary tract infection. 3. Treatment of behavioral problems as per his psychiatrist, Dr. Brooke. 4. Observe closely. Mary Sagastume M.D., M.S.P.MARY BROCK Aug 16, 2017 12:12
[2017-08-16] MEDS: Folic Acid 1 MG, Magnesium Sulfate 2,000 MG, Multivitamin - 12 Injection 10 ML in NS w/... IV SCH (14:10)
[2017-08-16] MEDS: Thiamine 100mg in D5W 55ml IVPB SCH (14:10)
[2017-08-16] MEDS ORDERED: BACTRIM DS TAB1 EAC1 ORAL (14:46)
[2017-08-16 16:00] VITALS: BP 129/74
[2017-08-16] MEDS ORDERED: cefTRIAXone 1 GM in D5W 55 ML IVPB SCH (16:00)
[2017-08-17 09:25] LABS: VITAMIN D 25-OH TOTAL 29 ng/mL (.)
--- NOTE | 2017-08-17 14:57 | Discharge Summary ---
Discharge Summary Hospital Course Date of Admission Aug 14, 2017 at 00:12 Date of Discharge Aug 16, 2017 at 19:13 Admitting Diagnosis altered mental status, encephalopathy HPI 81y/o male with pmh of HTN, depression, dementia, HLD, BPH who presents with AMS. History limited as pt w/ dementia. Pt noted to be increasingly agitated w/ aggressive behavior at the [facility]. Pt noted to be seeing/hearing things and more confused compared to baseline. No reports of f/c, n/v, d/c, chest pain , SOB, abd pain. Hospital Course Pt was admitted and treated with empiric ceftriaxone for UTI. Pt was seen by neurology given ventriculomegaly on CT brain. However, per neurology, mental status changes likely 2/2 UTI and no further workup required at this time. Pt's mental status slowly improved. Pt was transitioned to bactrim to complete treatment for UTI. Discharge physical exam: General: alert, cooperative, no distress, appears stated age, confused Head: normocephalic, without obvious abnormality, atraumatic Eyes: conjunctivae/corneas clear. PERRL, EOM's intact Throat: lips, mucosa, and tongue normal. MMM Neck: supple, symmetrical, trachea midline, and no JVD Lungs: clear to auscultation bilaterally Heart: regular rate and rhythm, S1, S2 normal, no murmur, click, rub or gallop Abdomen: soft, non-tender, non-distended, bowel sounds normal; no masses or organomegaly Extremities: extremities normal, atraumatic, no cyanosis or edema Pulses: 2+ and symmetric Skin: skin color, texture, turgor normal; no rashes or lesions Neurologic: grossly normal, no focal deficits Discharge diagnoses: (1) Acute encephalopathy ICD Codes: G93.40 - Encephalopathy, unspecified SNOMED: 4647725 (2) UTI (urinary tract infection) ICD Codes: N39.0 - Urinary tract infection, site not specified SNOMED: 13160286 (3) Cerebral ventriculomegaly ICD Codes: G93.89 - Other specified disorders of brain SNOMED: 397912164 (4) Dementia ICD Codes: F03.90 - Unspecified dementia without behavioral disturbance SNOMED: 92489630 (5) Depression ICD Codes: F32.9 - Major depressive disorder, single episode, unspecified SNOMED: 94916942 (6) HTN (hypertension) ICD Codes: I10 - Essential (primary) hypertension SNOMED: 74163319 (7) HLD (hyperlipidemia) ICD Codes: E78.5 - Hyperlipidemia, unspecified SNOMED: 89107293 (8) BPH (benign prostatic hyperplasia) ICD Codes: N40.0 - Benign prostatic hyperplasia without lower urinary tract symptoms SNOMED: 683686306 Discharge Medications New Medications: Trimethoprim/Sulfamethoxazole 160/800* (Bactrim Ds Tablet*) 1 Each Tablet 1 TAB ORAL Q12H for 5 Days, #10 TAB 0 Refills Continued Medications: Atenolol* (Tenormin*) 25 Mg Tablet 25 MG ORAL DAILY, TAB Citalopram Hydrobromide* (Celexa*) 20 Mg Tablet 20 MG ORAL DAILY, TAB Clonidine Hcl* (Catapres*) 0.1 Mg Tablet 0.1 MG ORAL EVERY 12 HOURS PRN for For High Blood Pressure, TAB Dextran 70/Hypromellose (Artificial Tears) 1 Each Droperette 2 DROP BOTH EYES DAILY Divalproex Sodium (Depakote Sprinkle) 125 Mg Cap.sprink 250 MG PO BID, CAP Donepezil Hcl* (Donepezil Hcl*) 10 Mg Tablet 10 MG ORAL QHS, TAB Lisinopril (Lisinopril*) 20 Mg Tablet 20 MG ORAL DAILY, TAB hold SBP<110 or HR<60 Lorazepam* (Lorazepam*) 0.5 Mg Tablet 0.5 MG ORAL Q6HR PRN for For Anxiety, TAB Memantine Hcl* (Namenda*) 10 Mg Tablet 25 MG ORAL QHS, TAB Multivitamins* (Multivitamins*) 1 Each Tablet 1 TAB ORAL DAILY, TAB 0 Refills Pentoxifylline* (Trental*) 400 Mg Tablet.er 400 MG ORAL DAILY, TAB 0 Refills Simvastatin (Zocor) 20 Mg Tablet 20 MG ORAL BEDTIME, TAB Tamsulosin Hcl (Tamsulosin Hcl*) 0.4 Mg Cap.er.24h 0.4 MG ORAL BEDTIME, CAP Discharge Condition Upon Discharge: stable Discharge Disposition Patient was discharged to SNF/Subacute Facility(03) Discharge Diagnoses: Flor Rivera M.D. Aug 17, 2017 14:57
--- NOTE | 2017-08-17 17:47 | Progress Note ---
DATE: 08/16/2017 SUBJECTIVE: The patient is confused. He has episodes of agitation. Still requires Haldol IM. Poor insight and judgment into his mental condition. Easily agitated. MENTAL STATUS EXAMINATION: The patient is confused and disoriented. Mood is agitated. Affect is constricted. Congruent with mood. Thought process is concrete. Thought content, no suicidal or homicidal ideations. ASSESSMENT: Encephalopathy and dementia. PLAN: 1. We will continue the current medication. 2. Provide the patient with supportive therapy and reality orientation. Jose Brooke M.D. DR: LISETTE JOB#: [id number] CC:
--- NOTE | 2017-08-24 07:50 | Discharge Summary ---
Discharge Summary Hospital Course Date of Admission Aug 14, 2017 at 00:12 Date of Discharge Aug 16, 2017 at 19:13 Admitting Diagnosis altered mental status, encephalopathy HPI Jung Escobar is a 81 year old male who was admitted on Aug 14, 2017 at 00:12 for Altered Mental Status,Encephalopathy Hospital Course 81y/o male with pmh of HTN, depression, dementia, HLD, BPH who presents with AMS. History limited as pt w/ dementia. Pt noted to be increasingly agitated w/ aggressive behavior at the residential. Pt noted to be seeing/hearing things and more confused compared to baseline. No reports of f/c, n/v, d/c, chest pain , SOB, abd pain. He was brought into the [facility] emergency room on 08/14/2017 for an alteration in his mental state and behavioral problems consisting of aggressiveness towards his nurses and in addition, floridly hallucinating and having auditory and visual hallucinations. On being evaluated in the emergency room, he was found to have a urinary tract infection. He was treated with appropriate fluids and electrolytes and in addition given intravenous antibiotic ceftriaxone. He also had a CT scan of the brain performed. The CT scan of the brain was read by the radiologist as showing "chronic age-related changes and in addition ventriculomegaly probably secondary to central volume loss, but a component of normal pressure hydrocephalus is not excluded." The patient's history, neurological examination, imaging studies, and laboratory data are most compatible with an underlying dementia with superimposed encephalopathy related to the urinary tract infection. The imaging studies are not consistent with normal pressure hydrocephalus, but are consistent with hydrocephalus ex vacuo. The patient is confused. He has episodes of agitation. Requires Haldol IM. He has Poor insight and judgment into his mental condition and is easily agitated. He was seen by Dr Brooke. Urine culture showed growth of mixed organisms. He was given PT/OT and was discharged back to SNF to continue Bactrim for 5 more days. Assessment/Plan Problem List: (1) Encephalopathy, acute metabolic likely secondary to UTI ICD Codes: G93.40 - Encephalopathy, unspecified SNOMED: 6429789 (2) UTI (urinary tract infection) ICD Codes: N39.0 - Urinary tract infection, site not specified SNOMED: 30064196 (3) Cerebral ventriculomegaly ICD Codes: G93.89 - Other specified disorders of brain SNOMED: 683487902 (4) Dementia ICD Codes: F03.90 - Unspecified dementia without behavioral disturbance SNOMED: 47718911 (5) Depression ICD Codes: F32.9 - Major depressive disorder, single episode, unspecified SNOMED: 94362533 (6) HTN (hypertension) ICD Codes: I10 - Essential (primary) hypertension SNOMED: 92660404 (7) HLD (hyperlipidemia) ICD Codes: E78.5 - Hyperlipidemia, unspecified SNOMED: 92990512 (8) BPH (benign prostatic hyperplasia) ICD Codes: N40.0 - Benign prostatic hyperplasia without lower urinary tract symptoms SNOMED: 137739687 (9) lives at snf Status: progressing I have been assigned to complete a DC summary on this account, I was not involved with the patient's management--Julien Cunha NP Discharge Discharge Disposition Patient was discharged to SNF/Subacute Facility(03) Discharge Diagnoses: Livier Cunha NP Aug 24, 2017 07:50
== END 2017-08-16 19:13 | DRG 689 ==
LOC: EDBD 19:58 → EMR 21:49 → 4E 08-14 00:12 → EDBEDREQ 08-14 01:02 → 4E 08-15 10:26
DX: N39.0 Urinary tract infection, site not specified (principal); G93.41 Metabolic encephalopathy; G91.9 Hydrocephalus, unspecified; F05 Delirium due to known physiological condition; F03.90 Unspecified dementia, unspecified severity, without behavioral disturbance, psychotic disturbance, mood disturbance, and anxiety; I10 Essential (primary) hypertension; E78.5 Hyperlipidemia, unspecified; N40.0 Benign prostatic hyperplasia without lower urinary tract symptoms; Z66 Do not resuscitate; G93.89 Other specified disorders of brain; F32.9 Major depressive disorder, single episode, unspecified
CPT/HCPCS: 36415; 70450; 80048; 80053; 81003; 82140; 82306; 82607; 82746; 82962; 83735; 84443; 84484; 85025; 86592; 87081; 87086; 93005; 99285